=== PATIENT | female | born 1995 | race Caucasian/White ===

== ENCOUNTER 2018-09-13 05:42 | Emergency (ER) | payer OTHER ==
[2018-09-13] MEDS ORDERED: ALBUTEROL SO4 2.5/IPRATROPIUM 0.5 INH SOL 3 ML VIAL.NEB. NEB ONE ×2 (05:48)
[2018-09-13 05:54] VITALS: BP 124/79; PULSE 90; TEMP 98.3; BMI 32.3
--- NOTE | 2018-09-13 06:14 | PDOC ---
History of Present Illness - General Stated Complaint: DIFFICULTY BREATHING - History of Present Illness Initial Comments: 09/13/18 05:52 Ms. Walsh is a 23 yo female w/ pmh of Asthma, Hypothyroidism, Anxiety, and DM who presents for evaluation of shortness of breath with "the feeling of drowning " she reports is typical of her anxiety and asthma symptoms. Patient reports she was having a stressful conversation prior to her symptoms and that she has been under a lot of stress lately. Denies any other symptoms at this time. The patient denies chest pain, headache and dizziness. Denies fever, chills, nausea, vomit, diarrhea and constipation. Denies dysuria, frequency, urgency and hematuria. Past History - Past Medical History Allergies/Adverse Reactions: Allergies Allergy/AdvReac Type Severity Reaction Status Date / Time egg Allergy Verified 09/13/18 05:54 milk Allergy Verified 09/13/18 05:54 wheat Allergy Verified 09/13/18 05:54 haloperidol [From Haldol] AdvReac Verified 09/13/18 05:54 haloperidol lactate AdvReac Verified 09/13/18 05:54 [From Haldol] risperidone [From Risperdal] AdvReac Verified 09/13/18 05:54 egg Allergy Intermediate Uncoded 09/13/18 05:54 tuna Allergy Uncoded 09/13/18 05:54 Home Medications: Ambulatory Orders Albuterol Sulfate [Proair Hfa -] 1 - 2 inh PO TID 10/22/13 Aripiprazole [Abilify] 20 mg PO DAILY 10/22/13 Benztropine Mesylate [Cogentin] 2 mg PO BID #0 10/22/13 Diazepam [Valium] 5 mg PO DAILY 10/22/13 Fluticasone Prop 0.05% Nasal [Flonase -] 1 - 2 spray NS DAILY 10/22/13 Loratadine [Claritin -] 10 mg PO DAILY 10/22/13 Seizures: Yes - Suicide/Smoking/Psychosocial Hx Smoking History: Never smoked Have you smoked in the past 12 months: No Number of Cigarettes Smoked Daily: 3 Hx Alcohol Use: Yes Substance Use Type: Alcohol Review of Systems - Review of Systems Comments:: 09/13/18 06:14 GENERAL/CONSTITUTIONAL: No fever or chills. No weakness. HEAD, EYES, EARS, NOSE AND THROAT: No change in vision. No ear pain or discharge. No sore throat. CARDIOVASCULAR: +SOB as described. No chest pain RESPIRATORY: No cough, wheezing, or hemoptysis. GASTROINTESTINAL: No nausea, vomiting, diarrhea or constipation. GENITOURINARY: No dysuria, frequency, or change in urination. MUSCULOSKELETAL: No joint or muscle swelling or pain. No neck or back pain. SKIN: No rash NEUROLOGIC: No headache, vertigo, loss of consciousness, or change in strength/ sensation. ENDOCRINE: No increased thirst. No abnormal weight change HEMATOLOGIC/LYMPHATIC: No anemia, easy bleeding, or history of blood clots. ALLERGIC/IMMUNOLOGIC: No hives or skin allergy. *Physical Exam - Physical Exam Comments: 09/13/18 06:14 GENERAL: Awake, alert, and fully oriented, in no acute distress HEAD: No signs of trauma, normocephalic, atraumatic EYES: PERRLA, EOMI, sclera anicteric, conjunctiva clear ENT: Auricles normal inspection, hearing grossly normal, nares patent, oropharynx clear without exudates. Moist mucosa NECK: Normal ROM, supple, no lymphadenopathy, JVD, or masses LUNGS: No distress, speaks full sentences, clear to auscultation bilaterally HEART: Regular rate and rhythm, normal S1 and S2, no murmurs, rubs or gallops, peripheral pulses normal and equal bilaterally. ABDOMEN: Soft, nontender, normoactive bowel sounds. No guarding, no rebound. No masses EXTREMITIES: Normal inspection, Normal range of motion, no edema. No clubbing or cyanosis. NEUROLOGICAL: Cranial nerves II through XII grossly intact. Normal speech, normal gait, no focal sensorimotor deficits SKIN: Warm, Dry, normal turgor, no rashes or lesions noted. ED Treatment Course - Medications Given in the ED: ED Medications Discontinued Medications Generic Name Dose Route Start Last Admin Trade Name Freq PRN Reason Stop Dose Admin Albuterol/Ipratropium 1 amp 09/13/18 05:48 09/13/18 05:51 Duoneb - NEB 09/13/18 05:49 1 amp ONCE ONE Administration Medical Decision Making - Medical Decision Making 09/13/18 06:15 Ms. Walsh is a 23 yo female w/ pmh as described who presents for evaluation of symptoms concerning for asthma vs. anxiety vs. acute lung process. Patient given duoneb for symptomatic relief. Patient reports relief of symptoms with this treatment. No further symptoms and patient reporting she believes this was caused by her anxiety. No concern for acute process at this time. 09/13/18 06:43 Patient remains well appearing w/ cessation of symptoms. Discharging to home. *DC/Admit/Observation/Transfer Diagnosis at time of Disposition: Shortness of breath - Discharge Dispostion Disposition: HOME - Referrals - Patient Instructions Printed Discharge Instructions: DI for Anxiety -- Adult Additional Instructions: You were evaluated today in the ER for your symptoms. You improved with a breathing treatment. We do not believe anything emergent is occurring at this time and think you are safe for discharge. Please follow-up with primary care provider early next week for further evaluation. Return to ER if any fever, chills, pain, return of symptoms, or other concerning developments. - Post Discharge Activity
--- NOTE | 2018-09-13 06:41 | PDOC ---
Attending Attestation - Resident Resident Name: Edward Banuelos - ED Attending Attestation I have performed the following: I have examined & evaluated the patient, The case was reviewed & discussed with the resident, I agree w/resident's findings & plan, Exceptions are as noted - HPI HPI: 09/13/18 06:43 23F pmh DM, asthma, anxiety, hypothyroidism here with SOB and sensation of drowning. Pt endorses recent acute stress. No other complaints - Physicial Exam PE: 09/13/18 06:44 Agree with exam as documented by resident AOx3, NAD, normal wob LCTAB - Medical Decision Making 09/13/18 06:44 Consider anxiety reaction SOB re-eval after symptomatic tx Pt states symptoms are completely resolved dc home
== END 2018-09-13 06:49 | disposition home or self-care (01) ==
LOC: JER 05:42
PROC: 3E0F7GC Introduction of Other Therapeutic Substance into Respiratory Tract, Via Natural or Artificial Opening (ICD-10-PCS; principal; 2018-09-13)
DX: F41.9 Anxiety disorder, unspecified (principal); J45.909 Unspecified asthma, uncomplicated; E03.9 Hypothyroidism, unspecified; E11.9 Type 2 diabetes mellitus without complications
CPT/HCPCS: 94640; 99282-25

== ENCOUNTER 2018-10-31 22:20 | Emergency (ER) | payer OTHER ==
[2018-10-31 22:29] VITALS: BP 116/77; PULSE 74; TEMP 99.3; BMI 34.3
--- NOTE | 2018-10-31 23:02 | PDOC ---
Documentation entered by Kathy Yeh SCRIBE, acting as scribe for Reddy Yousif MD. Reddy Yousif MD: This documentation has been prepared by the Ruba kauffman Nirvannie, SCRIBE, under my direction and personally reviewed by me in its entirety. I confirm that the documentation accurately reflects all work, treatment, procedures, and medical decision making performed by me. History of Present Illness - General Chief Complaint: Pain Stated Complaint: TOE PAIN History Source: Patient Exam Limitations: No Limitations - History of Present Illness Initial Comments: 10/31/18 22:46 The patient is a 23 year old female, with a significant past medical history of hypothyroidism, prediabetes, and asthma, who presents to the emergency department with, right III, IV, V toe pain. As per patient, she accidentally walked into a door immediately onsetting pain to the foot. She notes difficulty ambulating secondary to pain. She denies loss of strength or sensation to the foot. No other injuries including pain in ankle, knee or hips. Past History - Past Medical History Allergies/Adverse Reactions: Allergies Allergy/AdvReac Type Severity Reaction Status Date / Time latex Allergy Intermediate Hives Verified 10/31/18 22:23 egg Allergy Verified 10/31/18 22:23 milk Allergy Verified 10/31/18 22:23 wheat Allergy Verified 10/31/18 22:23 haloperidol [From Haldol] AdvReac Verified 10/31/18 22:23 haloperidol lactate AdvReac Verified 10/31/18 22:23 [From Haldol] risperidone [From Risperdal] AdvReac Verified 10/31/18 22:23 egg Allergy Intermediate Uncoded 10/31/18 22:23 tuna Allergy Uncoded 10/31/18 22:23 Home Medications: Ambulatory Orders Albuterol Sulfate [Proair Hfa -] 1 - 2 inh PO TID 10/22/13 Aripiprazole [Abilify] 20 mg PO DAILY 10/22/13 Benztropine Mesylate [Cogentin] 2 mg PO BID #0 10/22/13 Diazepam [Valium] 5 mg PO DAILY 10/22/13 Fluticasone Prop 0.05% Nasal [Flonase -] 1 - 2 spray NS DAILY 10/22/13 Loratadine [Claritin -] 10 mg PO DAILY 10/22/13 Seizures: Yes - Suicide/Smoking/Psychosocial Hx Smoking History: Never smoked Have you smoked in the past 12 months: No Number of Cigarettes Smoked Daily: 3 Hx Alcohol Use: Yes Drug/Substance Use Hx: No Substance Use Type: Alcohol Review of Systems - Review of Systems Able to Perform ROS?: Yes Comments:: 10/31/18 22:47 CONSTITUTIONAL: No reported: Fever, Chills, Diaphoresis, Generalized Weakness, Malaise, Loss of Appetite MUSCULOSKELETAL: Present: Right 3-5 toe pain No reported: Back pain, Neck Pain NEUROLOGIC: No reported: Focal Weakness, Paresthesias All Other Systems: Reviewed and Negative *Physical Exam - Vital Signs Last Vital Signs Temp Pulse Resp BP Pulse Ox 99.3 F 74 18 116/77 100 10/31/18 22:24 10/31/18 22:24 10/31/18 22:24 10/31/18 22:24 10/31/18 22:24 - Physical Exam Comments: 10/31/18 22:37 General: no acute distress MSK: mild ttp to 3-4-5th digit on R foot, no focal ttp to 5th metatarsal or fore /hindfoot. no ttp or limitation of movement to ankle. No erythema/induration or bruislling noted. ED Treatment Course - RADIOLOGY Radiology Studies Ordered: Category Date Time Status FOOT-RIGHT [RAD] Stat Radiology 10/31/18 22:24 Ordered Medical Decision Making - Medical Decision Making 10/31/18 22:58 xray negative for fracture suspect sprain supportive care, hard sole shoe pt declines pain medications I discussed the physical exam findings, ancillary test results and final diagnoses with the patient. I answered all of the patient's questions. The patient was satisfied with the care received and felt comfortable with the discharge plan and treatment plan. The patient will call their primary care physician within 24 hours to arrange follow-up and will return to the Emergency Department with any new, persistent or worsening symptoms. *DC/Admit/Observation/Transfer Diagnosis at time of Disposition: Toe pain Qualifiers: Laterality: right Qualified Code(s): M79.674 - Pain in right toe(s) - Discharge Dispostion Disposition: HOME Condition at time of disposition: Improved Decision to Admit order: No - Referrals Referrals: [facility] [place] [facility] [place] [Provider Group] - Patient Instructions Printed Discharge Instructions: DI for Toe Sprain Additional Instructions: Return to the emergency department immediately with ANY new, persistent or worsening symptoms. Keep your leg elevated to minimze swelling. Take motrin or tylenol as needed for pain. You MUST call and follow up with your doctor tomorrow for further evaluation of your symptoms. Results were discussed with you. Please make sure your doctor reviews the results of your emergency evaluation. Your Emergency Department visit is not complete without a follow up with your doctor. Print Language: TURKMEN - Post Discharge Activity Forms/Work/School Notes: Back to Work
[2018-10-31] MEDS ORDERED: IBUPROFEN 400 MG TABLET (FP) PO ONE ×2 (23:09→23:10)
== END 2018-10-31 23:21 | disposition home or self-care (01) ==
LOC: FER 22:20
DX: M79.674 Pain in right toe(s) (principal); E03.9 Hypothyroidism, unspecified; J45.909 Unspecified asthma, uncomplicated
CPT/HCPCS: 73630-TC-RT-FY; 99282-25